=== PATIENT | male | born 1930 | race American Indian/Alaskan Native ===

== ENCOUNTER 2017-04-30 12:02 | Outpatient (CLI) | payer MEDICARE ==
[2017-04-30 14:13] LABS: Basophils % (Auto) 0.6 % (0.0-1.8); Eosinophils % (Auto) 3.4 % (0.0-4.3); Hematocrit 40.2 % (35.5-45.6); Hemoglobin 13.4 gm/dl (11.8-15.2); Mean Corpuscular HGB Conc 33 % (32-34); Mean Corpuscular Hemoglobin 32 pg (28-32); Mean Corpuscular Volume 96 fl (84-94); Platelet Count 188 K/mm3 (140-440); Red Cell Distribution Width 13.8 % (13.2-15.2); White Blood Count 3.4 K/mm3 (4.5-11.0)
[2017-04-30 14:17] LABS: Alanine Aminotransferase 13 units/L (7-56); Albumin/Globulin Ratio 1.2 %; Alkaline Phosphatase 104 units/L (35-129); Anion Gap 20 mmol/L; BUN/Creatinine Ratio 11.81; Blood Urea Nitrogen 13 mg/dL (9-20); Calcium 9.2 mg/dL (8.4-10.2); Carbon Dioxide 27 mmol/L (22-30); Chloride 104.9 mmol/L (98-107); Cholesterol 195 mg/dL (50-199); Glucose 82 mg/dL (75-100); HDL Cholesterol 103 mg/dL (40-59); LDL Cholesterol,Direct 78 mg/dL (50-130); Potassium 4.6 mmol/L (3.6-5.0); Sodium 147 mmol/L (137-145); Total Protein 7.4 g/dL (6.3-8.2); Triglycerides 74 mg/dL (2-149); Uric Acid 5.5 mg/dL (3.5-7.6)
[2017-05-03 14:50] LABS: Vitamin D, 25-OH, Total 15 ng/mL (30-100)
== END 2017-04-30 12:03 | disposition home or self-care (01) ==
LOC: LABHHL 12:02
PROVIDERS: ATTEND Internal Medicine
DX: K25.9 Gastric ulcer, unspecified as acute or chronic, without hemorrhage or perforation (principal); D64.9 Anemia, unspecified; I49.9 Cardiac arrhythmia, unspecified; R97.20 Elevated prostate specific antigen [PSA]; E55.9 Vitamin D deficiency, unspecified
CPT/HCPCS: 36415; 80053; 80061; 82306; 82607; 83036; 83540; 84153; 84443; 84550; 85025

== ENCOUNTER 2019-05-18 10:06 | Outpatient (CLI) | payer MEDICARE ==
[2019-05-18 11:18] LABS: Hematocrit 40.5 % (35.5-45.6); Hemoglobin 13.4 gm/dl (11.8-15.2); Mean Corpuscular HGB Conc 33 % (32-34); Mean Corpuscular Volume 96 fl (84-94); Platelet Count 198 K/mm3 (140-440); Red Blood Count 4.21 M/mm3 (3.65-5.03); Red Cell Distribution Width 13.8 % (13.2-15.2)
[2019-05-18 14:44] LABS: Alanine Aminotransferase 14 units/L (7-56); Albumin 4.1 g/dL (3.9-5); BUN/Creatinine Ratio 14; Blood Urea Nitrogen 13 mg/dL (9-20); Calcium 9.1 mg/dL (8.4-10.2); HDL Cholesterol 87 mg/dL (40-59); Hemolysis Index 3; LDL Cholesterol,Direct 83 mg/dL (50-130)
[2019-05-21 19:17] LABS: Vitamin D, 25-OH, D2 <4 ng/mL
== END 2019-05-18 10:07 | disposition home or self-care (01) ==
LOC: LAB 10:06
PROVIDERS: ATTEND Internal Medicine
DX: Z13.21 Encounter for screening for nutritional disorder (principal); Z13.29 Encounter for screening for other suspected endocrine disorder; E55.9 Vitamin D deficiency, unspecified; E78.5 Hyperlipidemia, unspecified; E34.9 Endocrine disorder, unspecified; R73.03 Prediabetes
CPT/HCPCS: 36415; 80053; 80061; 82306; 82607; 83036; 84443; 85027